=== PATIENT | female | born 1965 | race Hispanic/Latino ===

== ENCOUNTER → 2021-06-06 11:07 | Outpatient (CLI) | payer OTHER, SELFPAY ==
[2021-06-06 12:20] LABS: Add Manual Diff / Slide Review NO; Basophils Absolute Auto 0 /uL (0-100); Basophils Percent Auto 0.5 % (0-2); Eosinophils Absolute Auto 200 /uL (0-450); Eosinophils Percent Auto 3.9 % (2-4); Hematocrit 42.1 % (36-46); Hemoglobin 13.9 g/dL (12.0-16.0); Lymphocytes Absolute Auto 2400 /uL (1100-4500); Lymphocytes Percent Auto 44.9 % (25-40); Mean Corpuscular Hemoglobin 30.4 PG (26-34); Monocytes Absolute Auto 600 /uL (0-900); Monocytes Percent Auto 11.4 % (3-14); Neutrophils Absolute Auto 2100 /uL (1500-7000); Neutrophils Percent Auto 39.3 % (50-75); Platelet Count 250 X10^3/uL (150-400); Red Blood Cell Count 4.58 X10^6/uL (4.0-5.2); Red Cell Distribution Width 13.5 % (11.6-14.8); White Blood Cell Count 5.3 X10^3/uL (4.5-11.0)
[2021-06-06 12:30] LABS: Hemoglobin A1C% w Est Avg Glu 5.3 % (4.0-6.0)
[2021-06-06 12:35] LABS: BUN Creatinine Ratio 15.2 (6-22); Blood Urea Nitrogen 20 mg/dL (7-17); Carbon Dioxide 30 mmol/L (22-32); Chloride 105 mmol/L (98-107); Estimated Glomerular Filt Rate 41.6 mL/min (>60); Glucose 105 mg/dL (70-100); HEMOLYSIS < 15 (0-50); Potassium 4.5 mmol/L (3.4-5.1); Sodium 141 mmol/L (137-145)
== END ==
PROVIDERS: Referring Provider Orthopaedic Surgery Orthopaedic Surgery of the Spine; Visit Provider Orthopaedic Surgery Orthopaedic Surgery of the Spine
DX: Z01.818 Encounter for other preprocedural examination (principal); Z01.812 Encounter for preprocedural laboratory examination; R73.9 Hyperglycemia, unspecified
CPT/HCPCS: 36415; 80048; 83036; 85025; 93005; 93010

== ENCOUNTER → 2021-06-29 08:22 | Outpatient (CLI) | payer OTHER, SELFPAY ==
--- NOTE | 2021-06-29 | DI.CT.S_ITS ---
PROCEDURE: CT LUMBAR SPINE WO CON INDICATIONS: robotic protocol pending L4-5 TECHNIQUE: Noncontrast 3 mm thick sections acquired from the T12 level to the sacrum. For intraoperative guidance, 0.8 mm axial images were reformatted. Sagittal and coronal reformats were constructed. For radiation dose reduction, the following was used: automated exposure control. COMPARISON: [facility], MR, MR LUMBAR SPINE WITHOUT CONTRAST, 03/17/2021, 11:09. [facility] [place], CR, SPINE LUMB 2 OR 3VW, 06/29/2013, 13:18. [facility] [place], CR, XR LUMBAR SPINE 2 OR 3 VIEWS, 04/11/2021, 9:01. FINDINGS: Image quality: Excellent. Bones: There is normal bony alignment. No acute vertebral body compression fractures. No suspicious lytic or blastic bony lesions. No pars defects. T12-L1: No significant abnormality is seen. L1-L2: There is mild loss of disc height. Bridging anterior osteophytes are seen, which are worst on the right side. Mild generalized disc bulge is seen. No significant neural foraminal or central canal narrowing can be seen. L2-L3: The disc height is well preserved. Mild to moderate disc bulge is seen at this level. There is mild left-sided and nqox-sm-kbgfglis right-sided neural foraminal narrowing seen. Mild central canal narrowing is seen. L3-L4: The disc height is well preserved. At least moderate disc bulge is seen at this level. There is moderate left-sided and jqtl-gq-[id number] right-sided neural foraminal narrowing seen. Moderate central canal narrowing is seen. L4-L5: The disc height is relatively well preserved. Moderate to prominent facet hypertrophy is seen. Moderate bilateral neural foraminal narrowing can be seen, right worse than left. At least moderate central canal narrowing is seen. L5-S1: Moderate loss of disc height is seen. Vacuum disc phenomenon is seen at this level. Endplate irregularity and sclerosis can be seen. At least moderate disc bulge is seen. At least moderate facet hypertrophy can be seen. There is moderate to severe bilateral neural narrowing seen. Moderate central canal narrowing is seen. Soft tissues: No retroperitoneal masses or hematomas. Visualized aorta is normal in caliber. Left nephrectomy change is seen. IMPRESSION: Lumbar spine degenerative changes are seen, which are worst inferiorly at L4-L5 and L5-S1. Incidental note is made of: Left nephrectomy change Dictated by: Damon Sosa M.D. on 06/29/2021 at 10:06 Approved by: Damon Sosa M.D. on 06/29/2021 at 10:11
== END ==
DX: M47.816 Spondylosis without myelopathy or radiculopathy, lumbar region (principal); M47.817 Spondylosis without myelopathy or radiculopathy, lumbosacral region; M48.061 Spinal stenosis, lumbar region without neurogenic claudication; Z90.5 Acquired absence of kidney
CPT/HCPCS: 72131

== ENCOUNTER 2021-07-03 07:12 | Observation (INO) | payer OTHER, SELFPAY ==
[2021-07-03] VITALS (15 sets, daily range): BP systolic 127–175; BP diastolic 75–90; PULSE 60–92; RESP 10–17; TEMP 36.2–37.4; O2SAT 83–100; BMI 37.0
[2021-07-03 07:55] LABS: COVID19 -Nasal RAPID Negative (Negative)
--- NOTE | 2021-07-03 09:22 | PM.PREOP ---
Pre-operative Note COVID-19 COVID-19 status: Negative Result date/Date tested (Pos, Neg/Pending): 07/02/21 Interval Note History & Physical reviewed/Exam performed by Physician: Yes Changes to H&P: No
[2021-07-03] MEDS: LACTATED RINGERS 1,000 ML 42 ML IV ×2 (09:23→12:57)
[2021-07-03] MEDS: CEFAZOLIN 2 GM/20 ML SYRINGE IV ×2 (10:06→17:07)
--- NOTE | 2021-07-03 10:48 | SUR.OPER ---
Prone on spine table, head in foam head support, padded chest and pelvic supports, gel pad at knees, lower legs supported by pillows; nipples, genitalia and toes free of pressure, arms secured on foam padded arm boards at <90 degrees abduction. Tape over blanket at thigh secured to table.
[2021-07-03] MEDS: BUPIVACAINE LIPOSOME 266 MG/20 ML VIAL INJ (11:21)
[2021-07-03] MEDS: BUPIVACAINE 0.25% (PF) 30 ML, EPINEPHrine 0.3 MG INJ (11:22)
--- NOTE | 2021-07-03 13:46 | DI.RAD.S_ITS ---
PROCEDURE: XR LUMBAR SPINE 2-3V INDICATIONS: L4-5 TLIF WITH FUSION TECHNIQUE: 2 intraoperative fluoroscopic views of the lumbar spine were acquired. COMPARISON: [facility], XR LUMBAR SPINE 2 OR 3 VIEWS, 04/11/2021, 9:01. FINDINGS: Intraoperative fluoroscopic images of lower lumbar spine shows posterior fusion at L4 through S1 levels with intervertebral spacer placement. IMPRESSION: Fluoro guidance was provided intraoperatively for posterior fusion at L4 through S1 levels. Dictated by: Eduar Stanford M.D. on 07/03/2021 at 14:40 Approved by: Eduar Stanford M.D. on 07/03/2021 at 14:40
--- NOTE | 2021-07-03 13:47 | PM.OP.1 ---
Operative Date/Time/Diagnoses Date of procedure: 07/03/21 Time of procedure: 10:10 Pre-op diagnosis: 1. L4-5, L5-S1 spinal stenosis with neurogenic claudication 2. L4-5, L5-S1 spondylosis with radiculopathy Post-op diagnosis: same Procedure & Clinicians Procedure: 1. L4-5, L5-S1 Postero-lateral and posterior interbody fusion 2. L4-5, L5-S1 interbody cage placement. 3. L4-5, L5-S1 decompressive laminectomy with bilateral facetecomies 4. L4-5, L5-S1 Posterior segmental instrumentation 5. Wever of bone marrow from iliac crest 6. Utilization of microsurgical technique and operating microscope 7. Robotic assisted navigation surgery Same procedure as scheduled: Yes Indications: Patient has been having chronic back pain and worsening lumbar radiculopathy. Patient failed multiple conservative management with worsening pain weakness and numbness in her lower extremity. Patient has been having difficulty performing activity of daily living. After discussing risks benefits of treatment options, patient elected proceed with surgery. Surgeon: Cesar Demarco Sales And Marketing Professional: Anu Umana Click Yes if Unassisted: No Anesthesia Type: General Operative Notes Closure Type: primary Specimen(s): none sent Prosthetic devices, grafts, tissues, transplants, or devices: Globus CREO MIS screws, Rise cages Applied: catheter Estimated Blood Loss (mL): 150 Blood products transfused: none Procedure in detail: Patient was seen in the preoperative area. Risks and benefits of the surgery was discussed with the patient. Informed consent was obtained from the patient and placed in the chart. Surgical site was marked. Patient was taken to the operative room. General anesthesia was administered. Prophylactic antibiotic was given to the patient less than 30 min before the incision was made. Patient was placed into a prone position on the Gregor table. Patient's back was then prepped and draped in the sterile fashion. Time-out was performed at this time. After patient was prepped and draped, patient's PSIS was palpated and marked bilaterally. Small 1 cm incision was made over the PSIS for placement of the reference probes. Two trocar was placed into the PSIS 1 on each side. The reference probe was attached to the trocar of the reference apparatus. At this time the C-arm imaging was used to confirm AP and lateral of L4-L5, L5-S1 vertebrae and merged the C-arm imaging using the Trendy Mondays robotic navigation system with the CT of the lumbar spine. After successful merging was completed and confirmed, skin marker was used to sudheer out the skin incision using the Trendy Mondays robotic arm. Bilateral incision was made at this time. Pre templated trajectory was used and guided using the Trendy Mondays robotic navigation system for bilateral L4, L5, S1 pedicle screw placement. This was done by using the robotic arm to guide the high-speed bur to make a cortical entry point. Next a drill was placed also using the robotic arm and guided using the navigation system drilling partially through bilateral L4, L5 and S1 pedicles. Next L4, L5, S1 pedicle screws it was pre templated and measured was placed onto the power transit bus driver and inserted into the pedicles bilaterally. After all 6 screws were placed C-arm imaging was taken of both AP and lateral to confirm the placement. Excellent placement of the screws were confirmed and a matched precisely with the pre planned screw placement using the navigation system. MARs retractor was inserted using Gorb guidence. Globus MARS retractors was placed inside the incision and docked onto the L4 and L5 lamina. Using microsurgical technique and operating microscope, a L4, L5 laminectomy and L4-5, L5-S1 facetectomy was performed using a Kerrison rongeur. Patient was found have severe lateral recess and neural foramen stenosis which was fully decompressed after the laminectomy facetectomy. More than 75% of the facets were removed during the process of decompression rendering L4-5, L5-S1 level grossly unstable and required a fusion procedure at the same time. The disc space at L4-5, L5-S1 was identified, and a total diskectomy was performed at L4-5, L5-S1 level. The endplates were decorticated using a rasp and shaver. The total diskectomy and decortication was performed at L4-5, L5-S1 level in order to to accomplish a L4-5, L5-S1 fusion. The local bone from the laminectomy and facetectomy was saved for local bone grafting. After the total diskectomy and decortication was completed, Trifecta bone graft material was combined with local bone that was harvested earlier. At this time, a separate skin is incision was made over the iliac crest. A Jamshidi needle was inserted into the iliac crest through a separate skin incision. 5 cc of bone marrow aspiration was obtained through the separate skin incision using a Jamshidi needle from the iliac crest. The bone marrow aspiration was combined with local bone and the Trifecta bone grafting material. The bone grafting material was placed into the L4-5, L5-S1 interbody space along with a expandable cage. The cage was expanded to its maximum height using the torque limiting screwdriver. The disc preparation as well as the cage insertion were also performed under navigation guidance. After the cage was placed, AP and lateral C-arm imaging was taken to confirm placement of the cage and excellent position was confirmed. Globus MARS retractor was inserted and docked onto the L4-5, L5-S1 posterolateral gutter on the right side. Using the power drill, posterior-lateral decortication was performed at L4-5, L5-S1 level until bleeding cortical bone was identified. The remaining bone grafting material was placed into the L4-5, L5-S1 posterior lateral gutter he order to accomplish posterolateral fusion at the L4-5, L5-S1 level. At this time the tulips were attached to the L4, L5, S1 pedicle screw shanks. After measuring the length of the rods, they were inserted into the tulips of the pedicle screws and locked in place using locking caps and torque limiting screwdriver bilaterally. Total 6 caps and 2 titanium rods was used in order to complete the posterior instrumentation construct. After all the hardware was placed, and confirmed with AP and lateral C-arm imaging, the wound was then irrigated with sterile normal saline and packed with Ray-Abdiel gauze for 3 min to accomplish hemostasis. After the gauze was removed the deep fascia was closed with #1 Vicryl suture. The subcutaneous layer was closed with 2-0 Vicryl. The skin was closed with skin magnus. Patient tolerated the procedure well. There were no complications. Neuro monitoring system was used to monitor patient's neurologic status throughout entire procedure. There was no disturbance of the neural monitoring signals throughout the case. Complications: none Post-operative Condition: stable Disposition: PACU Plan for aftercare: Admit to inpatient hospital
--- NOTE | 2021-07-03 14:12 | SUR.PHASEI ---
1403 hrs; Pt arrives PACU breathing unassisted. Report from Dr Arora and CHILDREN'S ENTERTAINER. Pt placed on O2 NC 4 L for sats below 90.
[2021-07-03] MEDS: hydrOXYzine 50 MG/ML INJ 25 MG IM (14:37)
[2021-07-03] MEDS: OXYCODONE IR 5 MG TABLET PO (14:43)
[2021-07-03] MEDS: SODIUM CHLORIDE 0.9% 1,000 ML 100 ML IV (16:10)
[2021-07-03] MEDS: HYDROMORPHONE 0.5 MG INJ IV (16:42)
[2021-07-03] MEDS: OXYCODONE IR 5 MG TABLET 10 MG PO (19:41)
[2021-07-03] MEDS: DOCUSATE 100 MG CAPSULE PO (20:24)
[2021-07-03] MEDS: hydrOXYzine pamoate 25 MG CAPSULE PO (20:25)
[2021-07-03] MEDS: SENNOSIDES 8.6 MG TABLET 17.2 MG PO (20:25)
[2021-07-04] MEDS: OXYCODONE IR 5 MG TABLET 10 MG PO ×4 (00:03→20:18)
[2021-07-04] MEDS: SODIUM CHLORIDE 0.9% 1,000 ML 100 ML IV (01:38)
[2021-07-04] MEDS: CEFAZOLIN 2 GM/20 ML SYRINGE IV (01:38)
[2021-07-04] MEDS: LEVOTHYROXINE 50 MCG TABLET PO (05:30)
[2021-07-04 05:33] LABS: Hematocrit 37.9 % (36-46); Hemoglobin 12.7 g/dL (12.0-16.0)
[2021-07-04] MEDS: HYDROMORPHONE 0.5 MG INJ IV (05:40)
[2021-07-04 07:30] VITALS: BP 105/55; PULSE 81; RESP 22; TEMP 37.3; O2SAT 100
--- NOTE | 2021-07-04 07:55 | PM.PNPO.1 ---
Subjective Subjective Date Patient Seen: 07/04/21 Time Patient Seen: 07:55 Interval history: Pain mild to moderate. Denies fever or chills. No nausea or vomiting. Exam Vital Signs (past 8 hours): - 07/04/21 07:30 Temperature 99.2 F Pulse Rate 81 Respiratory Rate 22 Blood Pressure 105/55 L Pulse Oximetry 100 Oxygen Delivery Method Room Air Oxygen Flow Rate 2 Narrative Exam Narrative: 55-year-old female resting comfortably in bed in no apparent distress. BMI 37. Dressing is saturated on the right. Motor functions intact bilateral lower extremities. Sensation grossly intact to light touch bilateral lower extremities. Both legs are warm and dry. Const General: cooperative Resp Effort & Inspection: normal respiratory effort and able to speak in complete sentences Objective Labs Result Diagrams: 07/04/21 04:57 Labs: Laboratory Results - last 24 hr 07/03/21 07/04/21 07:26 04:57 Hgb 12.7 Hct 37.9 [facility]-CoV-2 (PCR) [facility] Medical History Fibromyalgia Hypothyroid [facility] on CPAP Surgical History History of arthroscopy of left shoulder (05/31/21) History of bilateral tubal ligation History of left nephrectomy (2007) History of lumbar spinal fusion (11/15/16) S/P excision of lipoma Social History household members: spouse Smoking Status: Never smoker Assessment & Plan Post-op Postoperative Procedures: Procedures Operation Date: 07/03/21 09:15 Actual Procedure Side Surgeon p L4-5, L5-S1 TLIF posterior instrumentation Not Applicable Cesar Demarco MD Postoperative day: 1 Postoperative status: doing well Postoperative status narrative: Stable status post surgery Postoperative plan narrative: Mobilize with physical therapy, limit bending, lifting, twisting Multimodal pain management Disposition home in 1-2 days
[2021-07-04] MEDS: DOCUSATE 100 MG CAPSULE PO ×2 (09:26→20:18)
--- NOTE | 2021-07-04 10:23 | CM.DANOTE ---
DCP: Case received, EMR reviewed and met with patient. Introduced self and role. Was able to obtain information regarding patient's baseline activity status prior to her surgery. DCP assessment completed with information currently available. Patient is a 55 year old female who admitted yesterday morning to the care of the orthopedic team. PCP: Dr. Hudson. P[facility]: [facility] Patient came to the hospital via private vehicle for a surgical procedure. Patient had L4-5, L5-S1 postero-lateral and posterior interbody fusion. Patient has history of low back pain and tingling and numbness in her LE. Patient also has history of Fibromyalgia. Met with patient in her room. She was sitting up in bed, alert and oriented. Confirmed with her that she resides in Saturday with her spouse, Jd. At her baseline, she indicated that she uses a cane at home. 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 Asked her if her would be able to assist her at home, and she indicated, he could. She has not yet worked with P.T. P: MARCOP to continue to follow for any needs. The plan is home when stable, but will need to see how she does with P.T. Annie Santoro RN/Stereotype Caster Discharge Planning/Care Management CM Discharge Assessment Start: 07/04/21 10:13 Freq: Status: Active Protocol: Document 07/04/21 10:13 (Rec: 07/04/21 10:15 [id number]) Discharge Planning Assessment Assigned Personal Development Mentor Annie Santoro RN/Stereotype Caster Advance Directives? No History Provided By Patient,Family Member,Medical Record Prior Living Arrangements House Household Members spouse Type of transporation used prior to Drives own vehicle admit Independent with ADL's Yes Is patient alert and oriented? Yes DME Already Rented / Owned Cane Discharge Plan Home Transportation Arrangement Spouse Referrals Initiated None needed Additional Comment Patient has not yet worked with P.T. [place] Updated in Patient Room with Yes name and ext. # of Personal Development Mentor Review Status In Process Next Review Type Continued Stay Review
--- NOTE | 2021-07-04 10:42 | PT.IIE ---
Current Diagnoses Spondylolisthesis, lumbar region (07/03/21) Spinal stenosis, lumbar region without neurogenic claudication (07/03/21) Surgery Performed Operation Date: 07/03/21 09:15 Actual Procedures p L4-5, L5-S1 TLIF posterior instrumentation(Not Applicable) - Cesar Demarco MD Medical History (Last Reviewed 07/04/21 @ 07:56 by Miki Wan PA-C) Fibromyalgia Hypothyroid CHICO on CPAP Physical Therapy Inpatient Evaluation/Re-Eval M1 PT/OT-IP Prior Functional Status Start: 07/04/21 08:34 Freq: NEEDED Status: Active Protocol: Document 07/04/21 10:42 AW (Rec: 07/04/21 11:37 AW [id number]) Medical Review Prior Functional Status Medical History Reviewed Yes Communication WNL Mobility and Gait Independent without assistive device. Pt and her regularly walk 4-5 laps around the high school track and did so as recently as last week. Activities of Daily Living and IADL's Pt had left shoulder surgery in May and is still on short term disability. She is needing some assist with getting undressed but is otherwise independent with ADL 's and has no restrictions from ortho. Social History Household Members spouse Living Arrangements House Number of Floors (Floors) One Floor Number of Stairs To Enter/Railing? Pt lives in second floor apartment which she accessed via 12 steps with narrow bilateral rails. 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 She lives with her in [place]. 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 Spouse, Jd, has taken time off work until next Saturday to assist at home. M2 PT-IP Current Condition Start: 07/04/21 08:34 Freq: NEEDED Status: Active Protocol: Document 07/04/21 10:42 AW (Rec: 07/04/21 11:37 AW [id number]) Physical Therapy Current Condition Current Condition Evaluation Date 07/04/21 Treatment Diagnosis L4-5 L5-S1 TLIF; impaired mobility and gait Onset Date 07/03/21 M3 PT-IP Subjective Start: 07/04/21 08:34 Freq: NEEDED Status: Active Protocol: Document 07/04/21 10:42 AW (Rec: 07/04/21 11:37 AW [id number]) Subjective Physical Therapy Visit Type Type Initial Evaluation Visit Start Time 09:51 Visit Stop Time 10:42 Total Visit Minutes 39 Notes Co-eval with OT. Split visits [id number] and [id number]. Pt's spouse was present and attentive throughout. Number of DRILLER AND REAMER Visits 0 Physical Therapy Visit Comments Patient Comments Pt is willing to participate with therapies. Patient Goals Return home with spouse support Therapy Pain Assessment Pain When Pain Assessed During Mobility Pain Present Pain Present Pain Reported Location Lower Back Intensity 5 Scale Used Numeric (0 - 10) Pain Management Techniques Re-positioning,Timing of Activity with Medications M4 PT-IP Mobility and Gait Start: 07/04/21 08:34 Freq: NEEDED Status: Active Protocol: Document 07/04/21 10:42 AW (Rec: 07/04/21 11:37 AW [id number]) PT-Bed Mobility Assessment Rolling Type of Rolling Log Rolling,Roll to Right Level of Assist Moderate Assistance,1 Person Assistance Supine to Sit Supine to Sit Moderate Assistance,1 Person Assistance,Bedrails Scooting Scooting to Edge of Bed Moderate Assistance PT-Transfer Assessment Sit to and From Stand Sit to and from Stand Minimal Assistance,1 Person Assistance,Use of Upper Extremities Equipment Transfer Assistive Device Gait Belt,Front Wheeled Walker Orthotic/Prosthetic Devices or Brace: No Transfers Transfer Destination Chair Transfer Technique pt amb with FWW Transfer Ability Level of Assist Contact Guard Assistance, Minimal Assistance Comments Mobility Comments Pt was lying in bed as PT and OT arrived. BP was 118/59 HR 86. PT educated pt on post-op precautions and log roll technique. Pt required verbal and tactile cues and mod assist for log roll and SL to sit. Pt c/o slight lightheadedness. Sitting BP 119/62 HR 88. She had difficulty maneuvering toward EOB. She is of short stature and needed mod assist to scoot forward. She complained of increased pressure in her low back in sitting. Once in position with feet as close to the ground as possible, pt stood to FWW min A x 1. She noted improvement in pressure symptoms in standing and agreed to ambulate around the room with FWW CGA. She asked to walk in the halls, stating her lightheadedness had improved. She walked a short distance out of the room and back to the sink. OT assisted pt with hygiene and pt tolerated standing >5 minutes. Pt walked to the chair with FWW CGA and transferred CGA. She was uncomfortable and trialed multiple positions. BP sitting was 99/58 HR 78 and did improve to 118/59 HR 84 within 2 minutes. Pt was left with multiple pillows behind her back and with legs elevated. Call light and tray table were in reach. Her spouse remained in the room. Gait Assessment Gait Gait Assistance Required: Contact Guard Assist Distance (Feet) 60 Able to Maintain Weight Bearing Status Yes During Gait Assistive Devices Assistive Device Gait Belt,Front Wheeled Walker Orthotic/Prosthetic Devices or Brace: No Gait Deviations General Gait Pattern Antalgic,Decreased Stride Length,Decreased Feet Clearance Factors Limiting Gait Function Factors Limiting Gait Function Decreased Activity Tolerance, Decreased Strength,Pain Comments Gait Comments Pt ambulated safely with FWW, requiring assist for line management. She reported improvement in all symptoms while walking. Stair Climbing Assessment Comments Stair Climbing Comments Not assessed. PT-Balance Assessment Sitting Balance and Reactions Static Sitting Balance Ability Good Dynamic Sitting Balance Ability Fair Standing Balance and Reactions Static Standing Balance Ability Good Dynamic Standing Balance Ability Good Device Used FWW M5 PT-IP Objective Assessments Start: 07/04/21 08:34 Freq: NEEDED Status: Active Protocol: Document 07/04/21 10:42 AW (Rec: 07/04/21 11:44 AW [id number]) Orientation Orientation/Cognition Level of Alertness Alert Orientation Name,Day of Week,Place, Situation Language Function Ability No Deficits Noted Safety Awareness Understands Safety Issues Memory Description No Deficits Noted Gross Range of Motion Lower Extremity ROM Assessment Within Functional Limits Strength Lower Extremity Strength Assessment Within Functional Limits Sensation Assessment Sensation Gross Sensation WNL M6 PT-IP Treatment Start: 07/04/21 08:34 Freq: NEEDED Status: Active Protocol: Document 07/04/21 10:42 AW (Rec: 07/04/21 11:44 AW [id number]) Physical Therapy Treatment Education Education Provided Precautions,Weight Bearing Status,Post-Op Packet,Safety Other Treatments Other Treatment Performed Educated pt and her spouse on PT plan of care, post-op precautions, and safe use of FWW. M7 PT-IP Assessment and Plan Start: 07/04/21 08:34 Freq: NEEDED Status: Active Protocol: Document 07/04/21 10:42 AW (Rec: 07/04/21 11:44 AW [id number]) PT Summary Assessment and Plan Potential Rehabilitation Potential Good Status of Condition at Evaluation Evolving Summary Impairments Pain,ROM,Strength,Balance,Bed Mobility,Transfers,Gait, Activity Tolerance Assessment Summary Yuridia is a 55 yo woman seen for PT evaluation on POD1 following L4-5 L5-S1 TLIF. 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 She had left shoulder surgery in May but has no current precautions or weightbearing restrictions. She lives with her spouse, Jd, who will be available to assist pt at home until Saturday when he returns to work . On assessment, pt required min-mod assist for bed mobility and sit to stand, CGA for mobility using FWW. PT anticipates pt will meet the goals of this plan of care and be safe to discharge home with assist once medically stable. She may need a FWW ( youth-size) for home use if unsafe with SPC. Goals Bed Mobility Goal Standby Assistance Transfer Goal Standby Assistance,Front Wheeled Walker Gait Goal Standby Assistance,Front Wheel Walker Gait Distance 250 Other Goals - up/down 12 steps with B rails SBA LTG: improve transfers and gait to SBA with SPC Days to Meet Goals 2 Frequency of Treatment Frequency Of Treatment Twice a Day Treatment Plan Physical Therapy Treatment Plan Bed Mobility Training,Transfer Training,Gait Training, Therapeutic Exercise,Balance Retraining,Post Op Education, Discharge Planning,Hot or Cold Pack Other Recommendations and Next Treatment review precautions, emphasize Focus hip hinge; mobility as tolerated; stairs when able; involve spouse in bed mobility training and any other caregiver training as appropriate Precautions Lumbar Precautions Log Roll,No Twisting,Limit Bending,Lifting Restriction of 10 lbs,Gait Belt above Incisional Area Recommendations To Nursing Amount of Assist Needed 1 Person Assist Discharge Recommendations PT Discharge Recommendations Home with Assistance Equipment Needed for Home Before youth-sized FWW if unsafe with Discharge SPC Transportation Needs at Discharge Private Vehicle
--- NOTE | 2021-07-04 10:50 | OT.IP.EVAL ---
Current Diagnoses Spondylolisthesis, lumbar region (07/03/21) Spinal stenosis, lumbar region without neurogenic claudication (07/03/21) Surgery Performed Operation Date: 07/03/21 09:15 Actual Procedures p L4-5, L5-S1 TLIF posterior instrumentation(Not Applicable) - Cesar Demarco MD Past Medical History (Last Reviewed 07/04/21 @ 07:56 by Miki Wan PA-C) Fibromyalgia History of arthroscopy of left shoulder (05/31/21) History of bilateral tubal ligation History of left nephrectomy (2007) History of lumbar spinal fusion (11/15/16) Hypothyroid CHICO on CPAP S/P excision of lipoma Surgical History (Last Reviewed 07/04/21 @ 07:56 by Miki Wan PA-C) History of arthroscopy of left shoulder (05/31/21) History of bilateral tubal ligation History of left nephrectomy (2007) History of lumbar spinal fusion (11/15/16) S/P excision of lipoma Occupational Therapy Inpatient Evaluation/Re-Eval M1 PT/OT-IP Prior Functional Status Start: 07/04/21 08:34 Freq: NEEDED Status: Active Protocol: Document 07/04/21 11:31 [facility] (Rec: 07/04/21 11:48 [facility] [id number]) Medical Review Prior Functional Status Communication Independent. Mobility and Gait Completely independent without a device. 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 Social History Household Members spouse Living Arrangements House Number of Stairs To Enter/Railing? Pt lives in second floor apartment with 12 steps and bilateral rails to ascend. Home Environment Standard Height Toilet,Tub/ Shower Home Equipment Straight Cane Additional Social History Comment Pts to be off of work until Saturday to assist with her needs. M2 OT-IP Current Condition Start: 07/04/21 11:30 Freq: Status: Active Protocol: Document 07/04/21 11:31 [facility] (Rec: 07/04/21 11:48 [facility] [id number]) Occupational Therapy Current Condition Current Condition Evaluation Date 07/04/21 Treatment Diagnosis S/p L4-5, L5-S1 TLIF Diagnosis Onset Date 07/03/21 Post Operative Precautions Lumbar Precautions Log Roll,No Twisting,Limit Bending,Lifting Restriction of 10 lbs,Gait Belt above Incisional Area M3 OT- IP Subjective and Pain Start: 07/04/21 11:30 Freq: Status: Active Protocol: Document 07/04/21 11:31 [facility] (Rec: 07/04/21 11:48 [facility] [id number]) OT- Subjective Occupational Therapy Visit Type Type Initial Evaluation Visit Start Time 10:02 Visit Stop Time 10:50 Total Visit Minutes 48 Occupational Therapy Visit Comments Patient Comments Pt agreed to get up. Patient/Caregiver Goals To go home. OT Pain Assessment Pain When Pain Assessed At Rest Pain Present Pain Present Pain Reported Location Lower Back Intensity 5 Scale Used Numeric (0 - 10) Description Pressure M4 OT- IP ADL's Start: 07/04/21 11:30 Freq: Status: Active Protocol: Document 07/04/21 11:31 [facility] (Rec: 07/04/21 11:48 [facility] [id number]) OT ADL-Grooming General Evaluation Grooming Ability Standby Assistance OT ADL-Oral Care General Eval Oral Care Ability Independent Comments Oral Care Comments VC to best spit into a cup/ basin to best follow her back precautions. OT ADL-Dressing General Eval Lower Body Dressing Ability Maximum Assistance Comments OT Dressing Comments Pt states will not wear socks and just slip on shoes. Began to initiate education of LB dressing equipment needs. OT ADL-Toileting General Evaluation Toileting Ability Total Assistance Comments OT Toileting Comments Catheter in place. OT ADL-Bathing Bathing Type Bathing Type Sponge Bath General Evaluation Bathing Ability Moderate Assistance Areas Needing Assistance Wash/Dry Back Comments OT Bathing Comments Pt able to sponge off her chest and arms. Pt would benefit from a shower chair and hand held shower spray. M5 OT- IP IADL's Start: 07/04/21 11:30 Freq: Status: Active Protocol: Document 07/04/21 11:31 [facility] (Rec: 07/04/21 11:48 [facility] [id number]) OT-Instrumental Activities of Daily Living Home Safety Awareness Awareness of Need for Assistance at Home Good Awareness Home Safety Comments Pt's to be home to assist pt until Saturday for all needs until having to go back to work. Medication Management Medication Management No Deficits Identified Money Management Money Management No Deficits Identified Meal Preparation Meal Preparation Comments Pt's to assist. Router Operator Radial Router Operator Radial Comments Pt's to assist. M6 OT- IP Functional Cognition Start: 07/04/21 11:30 Freq: Status: Active Protocol: Document 07/04/21 11:31 [facility] (Rec: 07/04/21 11:48 [facility] [id number]) Cognitive Factors Limiting Selfcare Function Cognitive Ability Level of Alertness Alert Patient Orientation Name,Age,Birthday,Month,Date, Year,Day of Week,Place, Situation Attention Span Ability Capable of Focused Attention, Capable of Sustained Attention Ability to Follow Commands Able to Follow Multi-Step Commands Cognitive Comments Cognitive Assessment Comments Pt appears intact with no issues to continue to follow for cognitive needs. OT- Vision and Hearing OT- Hearing Assessment OT- Hearing Assessment WFL OT- Vision Assessment Visual Acuity Glasses All The Time M7 OT- IP Mobility and Balance Start: 07/04/21 11:30 Freq: Status: Active Protocol: Document 07/04/21 11:31 [facility] (Rec: 07/04/21 11:48 [facility] [id number]) OT- Bed Mobility Assessment Rolling Type of Rolling Roll to Right Supine to Sit Supine to Sit Assist Moderate Assistance Scooting Scooting to Edge of Bed Maximum Assistance OT-Transfer Assessment Sit to and From Stand Sit to and from Stand Minimal Assistance Transfers Transfer Ability Contact Guard Assistance Technique Transfer Destination Bed,Chair Transfer Technique Stand Step Pivot Devices Transfer Assistive Devices Gait Belt,Front Wheeled Walker Comments Mobility Comments MODA from supine to sit and TIFFANIE to stand form higher bed and CGA when up on her feet with FWW. BP 119/52 sitting and after up on her feet dropped to 99/58 and then back up to 118/59. Pt on RA and O2 at 96% OT- Gait Assessment Comments Gait Ability Comments CGA with FWW. OT- Balance Assessment Sitting Balance and Reactions Static Sitting Balance Ability Good Dynamic Sitting Balance Ability Good Standing Balance and Reactions Static Standing Balance Ability Fair M8 OT- IP Objective Assessments Start: 07/04/21 11:30 Freq: Status: Active Protocol: Document 07/04/21 11:31 [facility] (Rec: 07/04/21 11:48 [facility] [id number]) OT-Muscle Tone Assessment Muscle Tone WNL Yes M9 OT- IP Assessment and Plan Start: 07/04/21 11:30 Freq: Status: Active Protocol: Document 07/04/21 11:31 [facility] (Rec: 07/04/21 11:48 [facility] [id number]) OT Summary Assessment and Plan Potential Rehabilitation Potential Good Analytic Complexity at Evaluation Low Summary OT Impairments Pain,Balance,Functional Mobility,Dressing,Toileting, Bathing,Toilet Transfers, Shower Transfers,Activity Tolerance Progress Towards Goals Progressing Toward Goals,Slow Progress due to Pain,Slow Progress due to Medical Issues Assessment Summary Pt low complexity and main barriers are steps and now needing some assistance for ADL and mobility needs. Pt has a supportive to assist with her needs at home and not having to go back to work until Saturday. Pt would benefit form getting a shower chair, ffw, and hand held shower spray. Pt looking to go home with her when medically stable. Goals Grooming Goal Independent Dressing Goal Minimal Assistance Toileting Goal Independent Bathing Goal Standby Assistance Toilet Transfer Goal Independent Shower Transfer Goal Independent Patient/Caregiver Education Goal Caregiver Independent Assisting Patient Days to Meet Goals 3 Frequency of Treatment Frequency Of Treatment Once a Day Treatment Plan OT Treatment Plan ADL Training,Functional Mobility,Patient/Family Education,Discharge Planning Other Treatment Recommendations and Next shower Treatment Focus Discharge Recommendations OT Discharge Recommendations Home with 14/01 Assist Available Home Equipment Needs FWW, shower chair, hand held shower spray Transportation Needs at Discharge Private Vehicle
[2021-07-04 11:55] VITALS: BP 127/76; PULSE 82; RESP 21; TEMP 37; O2SAT 98
--- NOTE | 2021-07-04 14:00 | PT-IP ANOTE ---
Pt refused therapy at 1400 due to fatigue from recent ambulation in hallways w/ . RN confirmed.
[2021-07-04 16:25] VITALS: BP 117/71; PULSE 85; RESP 17; TEMP 37.8; O2SAT 99
[2021-07-04 19:53] VITALS: BP 117/44; PULSE 89; RESP 17; TEMP 38.1; O2SAT 99
[2021-07-04 20:18] VITALS: TEMP 38.1
[2021-07-04] MEDS: SENNOSIDES 8.6 MG TABLET 17.2 MG PO (20:18)
[2021-07-04] MEDS: SODIUM CHLORIDE 0.9% FLUSH 10 ML IV (20:20)
[2021-07-04 23:53] VITALS: BP 117/44; PULSE 91; RESP 17; TEMP 37.9; O2SAT 95
[2021-07-05] MEDS: OXYCODONE IR 5 MG TABLET 10 MG PO ×5 (05:12→23:24)
[2021-07-05 05:20] VITALS: BP 108/63; PULSE 92; RESP 16; TEMP 37.1; O2SAT 93
[2021-07-05] MEDS: LEVOTHYROXINE 50 MCG TABLET PO (05:27)
[2021-07-05 07:30] VITALS: BP 121/59; PULSE 87; RESP 16; TEMP 36; O2SAT 94
[2021-07-05] MEDS: DOCUSATE 100 MG CAPSULE PO ×2 (09:21→20:13)
[2021-07-05] MEDS: SODIUM CHLORIDE 0.9% FLUSH 10 ML IV ×2 (10:35→20:25)
--- NOTE | 2021-07-05 10:40 | PT.IPTN ---
Current Diagnoses Obesity, unspecified (07/03/21) Spondylolisthesis, lumbar region (07/03/21) Spinal stenosis, lumbar region without neurogenic claudication (07/03/21) Arthrodesis status (07/03/21) Surgery Performed Operation Date: 07/03/21 09:15 Actual Procedures p L4-5, L5-S1 TLIF posterior instrumentation(Not Applicable) - eCsar Demarco MD Physical Therapy Treatment Note M2 PT-IP Current Condition Start: 07/04/21 08:34 Freq: NEEDED Status: Active Protocol: Document 07/05/21 10:15 SP (Rec: 07/05/21 12:39 SP [id number]) Physical Therapy Current Condition Current Condition Evaluation Date 07/04/21 Treatment Diagnosis L4-5 L5-S1 TLIF; impaired mobility and gait Onset Date 07/03/21 M3 PT-IP Subjective Start: 07/04/21 08:34 Freq: NEEDED Status: Active Protocol: Document 07/05/21 10:15 SP (Rec: 07/05/21 12:39 SP [id number]) Subjective Physical Therapy Visit Type Type Treatment Note Visit Start Time 10:15 Visit Stop Time 10:40 Total Visit Minutes 25 Number of FIELD ASSESSOR Visits 1 Physical Therapy Visit Comments Patient Comments Pt is willing to participate with FIELD ASSESSOR including stair assessment when approached her walking in hallway with LINEN SUPPLY LOAD BUILDER. Patient Goals Return home with spouse support. Therapy Pain Assessment Pain When Pain Assessed At Rest Pain Present Pain Present Pain Reported Location Lower Back Scale Used low level, not quantified Description With Movement Pain Management Techniques Re-positioning,Timing of Activity with Medications M4 PT-IP Mobility and Gait Start: 07/04/21 08:34 Freq: NEEDED Status: Active Protocol: Document 07/05/21 10:15 SP (Rec: 07/05/21 12:39 SP [id number]) PT-Transfer Assessment Sit to and From Stand Sit to and from Stand Minimal Assistance,Moderate Assistance,1 Person Assistance ,Use of Upper Extremities Equipment Transfer Assistive Device Gait Belt,Front Wheeled Walker Orthotic/Prosthetic Devices or Brace: No Transfers Transfer Destination Chair,Wheelchair Transfer Technique pt ambulated w/ FWW Transfer Ability Level of Assist Contact Guard Assistance,1 Person Assistance,Use of Upper Extremities Comments Mobility Comments Pt was walking in hallway w/ LINEN SUPPLY LOAD BUILDER using FWW, CGA via contact gown when arrived, LINEN SUPPLY LOAD BUILDER stated she walked about 200 + ft already. FIELD ASSESSOR took over with pt in hallway, donned gait belt up high, proceeded gait approx 50 ft w/c follow before needed to sit, Min A slow descent w/c and cues for reach back. Pt wheeled down to stairs. arrived, complete ascend/descend stair mgt step to 6 of 12 stairs B H E Min- Mod A x1 of and Mod cues for LE sequencing and body positioning for safety. Pt heavy WB BUE on FWW SPT back to w/c CG-Min A. Pt wheeled back to room. Sit> stand from w/c 5 ft gait to chair, cued full pivot back to chair Kaylin for slow descent. Pt required assist elevate LEs . FIELD ASSESSOR stated improved mobilty but unable to complete full 12 stairs, recommending CGT continue 2 pm with both in agreement for assess safe DC enter home. Gait Assessment Gait Gait Assistance Required: Contact Guard Assist Distance (Feet) 50 Able to Maintain Weight Bearing Status Yes During Gait Assistive Devices Assistive Device Gait Belt,Front Wheeled Walker Orthotic/Prosthetic Devices or Brace: No Gait Deviations General Gait Pattern Antalgic,Decreased Stride Length,Decreased Feet Clearance Factors Limiting Gait Function Factors Limiting Gait Function Decreased Activity Tolerance, Decreased Strength,Pain,Poor Safety Awareness Comments Gait Comments See mobility comments Stair Climbing Assessment Evaluation Level of Assist On Stairs Minimal Assistance,Moderate Assistance,1 Person Assistance Devices Stair Climbing Assistive Devices Left Railing,Right Railing Technique/Endurance Stair Climbing Direction Ascend and Descend Stair Climbing Technique Step to Step Number of Steps Climbed 3 Stair Climbing Set # Repetitions (reps) 2 Comments Stair Climbing Comments Completed 6 of 12 stairs has to complete at home, unable to complete full 12 due to decreased strength and activitiy tolerance, stop stand rest between each 3 stairs, 3 rests total. PT-Balance Assessment Sitting Balance and Reactions Static Sitting Balance Ability Good Dynamic Sitting Balance Ability Fair Standing Balance and Reactions Static Standing Balance Ability Good Dynamic Standing Balance Ability Good Device Used FWW M5 PT-IP Objective Assessments Start: 07/04/21 08:34 Freq: NEEDED Status: Active Protocol: Document 07/04/21 10:42 AW (Rec: 07/04/21 11:44 AW [id number]) Orientation Orientation/Cognition Level of Alertness Alert Orientation Name,Day of Week,Place, Situation Language Function Ability No Deficits Noted Safety Awareness Understands Safety Issues Memory Description No Deficits Noted Gross Range of Motion Lower Extremity ROM Assessment Within Functional Limits Strength Lower Extremity Strength Assessment Within Functional Limits Sensation Assessment Sensation Gross Sensation WNL M6 PT-IP Treatment Start: 07/04/21 08:34 Freq: NEEDED Status: Active Protocol: Document 07/05/21 10:15 SP (Rec: 07/05/21 12:39 SP [id number]) Physical Therapy Treatment Education Education Provided Precautions,Weight Bearing Status,Safety Other Treatments Other Treatment Performed Continued education in spinal precautions and safe repositioning of FWW fully back when backing up to sit, contact cues for reaching back slow descent Min A. M7 PT-IP Assessment and Plan Start: 07/04/21 08:34 Freq: NEEDED Status: Active Protocol: Document 07/05/21 10:15 SP (Rec: 07/05/21 12:39 SP [id number]) PT Summary Assessment and Plan Potential Rehabilitation Potential Good Status of Condition at Evaluation Evolving Summary Impairments Pain,ROM,Strength,Balance,Bed Mobility,Transfers,Gait, Activity Tolerance Progress Towards Goals Progressing Toward Goals,Slow Progress due to Pain,Slow Progress due to Activity Tolerance Assessment Summary Pt required CGA during gait using fWW, w/c follow due to decreased strength after already walking in hallway with LINEN SUPPLY LOAD BUILDER prior to seeing FIELD ASSESSOR. Min- Mod A sit>stand from w/c cues push from chair. Min- Mod A during stair mgt for trunk support ascend/ descend BHR. Recommending PM tx at 2 with . Will continue to assess progress. Goals Bed Mobility Goal Standby Assistance Transfer Goal Standby Assistance,Front Wheeled Walker Gait Goal Standby Assistance,Front Wheel Walker Gait Distance 250 Other Goals - up/down 12 steps with B rails SBA LTG: improve transfers and gait to SBA with SPC Days to Meet Goals 2 Frequency of Treatment Frequency Of Treatment Twice a Day Treatment Plan Physical Therapy Treatment Plan Bed Mobility Training,Transfer Training,Gait Training, Therapeutic Exercise,Balance Retraining,Post Op Education, Discharge Planning,Hot or Cold Pack Other Recommendations and Next Treatment Review precautions, emphasize Focus hip hinge; mobility as tolerated; 12 stairs w/ B HR for safet DC home. Continue caregiver training with spouse including stairs today at 2pm . *Dispense FWW for home standard vs youth prior to DC home. Precautions Lumbar Precautions Log Roll,No Twisting,Limit Bending,Lifting Restriction of 10 lbs,Gait Belt above Incisional Area Recommendations To Nursing Amount of Assist Needed 1 Person Assist Discharge Recommendations PT Discharge Recommendations Home with Assistance Equipment Needed for Home Before youth-sized FWW if unsafe with Discharge SPC Transportation Needs at Discharge Private Vehicle
--- NOTE | 2021-07-05 10:46 | PM.PNPO.1 ---
Subjective Subjective Date Patient Seen: 07/05/21 Time Patient Seen: 10:47 Interval history: Sitting up in chair. Complains of fatigue; she and say she just finished working with PT. They have 12 stairs leading into house and she was only able to complete 6 stairs w/ PT today as she had been ambulating quite a bit up and down the halls and was tired. Does not feel safe to go home today. Exam Vital Signs (past 8 hours): - 07/05/21 05:20 07/05/21 07:30 Temperature 98.7 F 96.8 F L Pulse Rate 92 H 87 Respiratory Rate 16 16 Blood Pressure 108/63 121/59 L Pulse Oximetry 93 94 Oxygen Delivery Method Room Air Oxygen Flow Rate 0 Narrative Exam Narrative: 5/5 strength in quadriceps, hamstrings, dorsiflexion, plantarflexion bilaterally. Sensation to light touch intact throughout BLE. Calves soft, compressible, nontender and without palpable cords or masses. Const General: cooperative and comfortable Orientation: alert, awake and oriented x3 Objective Labs Result Diagrams: 07/04/21 04:57 [facility] Medical History (Updated 07/05/21 @ 10:55 by Anu Umana PA-C) Fibromyalgia Hypothyroid Obesity (BMI 30-39.9) CHICO on CPAP Surgical History (Updated 07/05/21 @ 10:54 by Anu Umana PA-C) History of arthroscopy of left shoulder (05/31/21) History of bilateral tubal ligation History of left nephrectomy (2007) History of lumbar spinal fusion (11/15/16) S/P excision of lipoma Social History household members: spouse Smoking Status: Never smoker Assessment & Plan Post-op Assessment and plan (1) Status post lumbar spinal fusion: (2) Obesity (BMI 30-39.9): Postoperative Procedures: Procedures Operation Date: 07/03/21 09:15 Actual Procedure Side Surgeon p L4-5, L5-S1 TLIF posterior instrumentation Not Applicable Cesar Demarco MD Postoperative day: 2 Postoperative status narrative: Recovery following 2 level TLIF as expected. Postoperative plan narrative: Continue mobilization w/ PT. Likely d/c tomorrow if able to demonstrate ability to safely get into home.
--- NOTE | 2021-07-05 10:50 | OT.IP.TRT ---
Current Diagnoses Obesity, unspecified (07/03/21) Spondylolisthesis, lumbar region (07/03/21) Spinal stenosis, lumbar region without neurogenic claudication (07/03/21) Arthrodesis status (07/03/21) Surgery Performed Operation Date: 07/03/21 09:15 Actual Procedures p L4-5, L5-S1 TLIF posterior instrumentation(Not Applicable) - Cesar Demarco MD Occupational Therapy Treatment Note M2 OT-IP Current Condition Start: 07/04/21 11:30 Freq: Status: Active Protocol: Document 07/04/21 11:31 [facility] (Rec: 07/04/21 11:48 [facility] [id number]) Occupational Therapy Current Condition Current Condition Evaluation Date 07/04/21 Treatment Diagnosis S/p L4-5, L5-S1 TLIF Diagnosis Onset Date 07/03/21 Post Operative Precautions Lumbar Precautions Log Roll,No Twisting,Limit Bending,Lifting Restriction of 10 lbs,Gait Belt above Incisional Area M3 OT- IP Subjective and Pain Start: 07/04/21 11:30 Freq: Status: Active Protocol: Document 07/05/21 12:06 [facility] (Rec: 07/05/21 12:15 [facility] [id number]) OT- Subjective Occupational Therapy Visit Type Type Treatment Note Visit Start Time 10:40 Visit Stop Time 10:50 Total Visit Minutes 10 Occupational Therapy Visit Comments Patient Comments Pt just worked with PT and too tired to get up again. Patient/Caregiver Goals To go home. OT Pain Assessment Pain When Pain Assessed At Rest Pain Present Pain Present Denied Pain M4 OT- IP ADL's Start: 07/04/21 11:30 Freq: Status: Active Protocol: Document 07/05/21 12:06 [facility] (Rec: 07/05/21 12:15 [facility] [id number]) OT ADL-Dressing Comments OT Dressing Comments Pt's states to get a submarine diver for to use and that he or other family members will assist with any on her needs as needed. OT ADL-Bathing Comments OT Bathing Comments Pt states to shower tomorrow, pt's agreed to come for caregiver training tomorrow at 9AM. M5 OT- IP IADL's Start: 07/04/21 11:30 Freq: Status: Active Protocol: Document 07/04/21 11:31 [facility] (Rec: 07/04/21 11:48 [facility] [id number]) OT-Instrumental Activities of Daily Living Home Safety Awareness Awareness of Need for Assistance at Home Good Awareness Home Safety Comments Pt's to be home to assist pt until Saturday for all needs until having to go back to work. Medication Management Medication Management No Deficits Identified Money Management Money Management No Deficits Identified Meal Preparation Meal Preparation Comments Pt's to assist. Liner Installer Liner Installer Comments Pt's to assist. M6 OT- IP Functional Cognition Start: 07/04/21 11:30 Freq: Status: Active Protocol: Document 07/04/21 11:31 [facility] (Rec: 07/04/21 11:48 [facility] [id number]) Cognitive Factors Limiting Selfcare Function Cognitive Ability Level of Alertness Alert Patient Orientation Name,Age,Birthday,Month,Date, Year,Day of Week,Place, Situation Attention Span Ability Capable of Focused Attention, Capable of Sustained Attention Ability to Follow Commands Able to Follow Multi-Step Commands Cognitive Comments Cognitive Assessment Comments Pt appears intact with no issues to continue to follow for cognitive needs. OT- Vision and Hearing OT- Hearing Assessment OT- Hearing Assessment WFL OT- Vision Assessment Visual Acuity Glasses All The Time M8 OT- IP Objective Assessments Start: 07/04/21 11:30 Freq: Status: Active Protocol: Document 07/04/21 11:31 [facility] (Rec: 07/04/21 11:48 [facility] [id number]) OT-Muscle Tone Assessment Muscle Tone WNL Yes M9 OT- IP Assessment and Plan Start: 07/04/21 11:30 Freq: Status: Active Protocol: Document 07/05/21 12:06 [facility] (Rec: 07/05/21 12:15 [facility] [id number]) OT Summary Assessment and Plan Summary Progress Towards Goals Progressing Toward Goals Assessment Summary Pt's states to just get a FWW from the hospital therefore orders requested for the pt. Pt's states to get a shower chair and submarine diver from work for her to use at home. Pt has a supportive and family to assist her. Pt to go home when medically stable. Goals Grooming Goal Independent Dressing Goal Minimal Assistance Bathing Goal Standby Assistance Toilet Transfer Goal Independent Shower Transfer Goal Independent Patient/Caregiver Education Goal Caregiver Independent Assisting Patient Days to Meet Goals 2 Frequency of Treatment Frequency Of Treatment Once a Day Treatment Plan OT Treatment Plan ADL Training,Functional Mobility,Patient/Family Education,Discharge Planning Other Treatment Recommendations and Next shower/caregiver training Treatment Focus Discharge Recommendations OT Discharge Recommendations Home with 24/ Assist Available Home Equipment Needs FWW, shower chair, hand held shower spray Transportation Needs at Discharge Private Vehicle
[2021-07-05 12:09] VITALS: BP 125/67; PULSE 87; RESP 17; TEMP 37.1; O2SAT 96
--- NOTE | 2021-07-05 14:34 | PT.IPTN ---
Current Diagnoses Obesity, unspecified (07/03/21) Spondylolisthesis, lumbar region (07/03/21) Spinal stenosis, lumbar region without neurogenic claudication (07/03/21) Arthrodesis status (07/03/21) Surgery Performed Operation Date: 07/03/21 09:15 Actual Procedures p L4-5, L5-S1 TLIF posterior instrumentation(Not Applicable) - Cesar Demarco MD Physical Therapy Treatment Note M2 PT-IP Current Condition Start: 07/04/21 08:34 Freq: NEEDED Status: Active Protocol: Document 07/05/21 14:05 SP (Rec: 07/05/21 17:22 SP [id number]) Physical Therapy Current Condition Current Condition Evaluation Date 07/04/21 Treatment Diagnosis L4-5 L5-S1 TLIF; impaired mobility and gait Onset Date 07/03/21 M3 PT-IP Subjective Start: 07/04/21 08:34 Freq: NEEDED Status: Active Protocol: Document 07/05/21 14:05 SP (Rec: 07/05/21 17:22 SP [id number]) Subjective Physical Therapy Visit Type Type Treatment Note Visit Start Time 14:05 Visit Stop Time 14:34 Total Visit Minutes 29 Notes completed caregiver training, provided all assist required throughout tx. Number of RAIL TRACK LAYER Visits 2 Physical Therapy Visit Comments Patient Comments Pt is willing to participate with therapies. Patient Goals Return home with spouse support. Therapy Pain Assessment Pain When Pain Assessed At Rest Pain Present Pain Present Pain Reported Location Lower Back Scale Used low level, not quantified Description With Movement Pain Behaviors Facial Grimacing Pain Management Techniques Distraction,Modification of Treatment,Re-positioning, Timing of Activity with Medications M4 PT-IP Mobility and Gait Start: 07/04/21 08:34 Freq: NEEDED Status: Active Protocol: Document 07/05/21 14:05 SP (Rec: 07/05/21 17:22 SP [id number]) PT-Transfer Assessment Sit to and From Stand Sit to and from Stand Minimal Assistance,Moderate Assistance,1 Person Assistance ,Use of Upper Extremities Equipment Transfer Assistive Device Gait Belt,Front Wheeled Walker Orthotic/Prosthetic Devices or Brace: No Transfers Transfer Destination Chair,Wheelchair Transfer Technique pt ambulated w/ FWW Transfer Ability Level of Assist Contact Guard Assistance,1 Person Assistance,Use of Upper Extremities Comments Mobility Comments Pt seated up in chair when arrived, in room. donned gait belt on pt , provided support for sitting forward and scoot to EOchair . Pt improved mobility this tx, completed sit>stand Min- Mod A of , cued for quad facilitation for tall upright complete stand heavy BUE WB push from chair arms and transition to FWW. Pt ambulated to w/c in hallway 20 ft CGA small slow steps, mod- heavy WB on FWW. SPT slow descent to chair Min A. Pt wheeled to stairs. Ascend/ descend 9 stair of 12 has at home, unable complete 3 more due to decreased strength and endurance. Pt requested walk back to room w/c follow but not needed approx 270 ft CGA with occasional due for standing tall (standard height FWW at lowest level appropriate for her height when assessed), tends to sink/ slouch heavy WB BUE on FWW. Pt SPT returned to chair Min A for slow descent, able self scoot back in chair w/ BUE. elevated chair leg rests, provided warm blankets. Pt had call light and all needs in reach before left. in room. Will continue to assess progress. Believe pt will be able to complete full 12 stairs if DC tomorrow but trialing before leave might tire her when gets home. is able to provide assist needs, pt will need FWW dispensed prior to DC. Gait Assessment Gait Gait Assistance Required: Contact Guard Assist Distance (Feet) 270 Able to Maintain Weight Bearing Status Yes During Gait Assistive Devices Assistive Device Gait Belt,Front Wheeled Walker Orthotic/Prosthetic Devices or Brace: No Gait Deviations General Gait Pattern Antalgic,Decreased Stride Length,Decreased Feet Clearance Factors Limiting Gait Function Factors Limiting Gait Function Decreased Activity Tolerance, Decreased Strength,Limited Range of Motion,Pain,Poor Safety Awareness Comments Gait Comments see mobility comments Stair Climbing Assessment Evaluation Level of Assist On Stairs Minimal Assistance,Moderate Assistance,1 Person Assistance Devices Stair Climbing Assistive Devices Left Railing,Right Railing Technique/Endurance Stair Climbing Direction Ascend and Descend Stair Climbing Technique Step to Step Number of Steps Climbed 3 Stair Climbing Set # Repetitions (reps) 3 Comments Stair Climbing Comments completed 9/12 stairs has at home, cued quad facilitation 8 , 9 step to prevent risk buckling due to pt tiring. Min - Mod ascend, Kaylin descend by via gait belt. PT-Balance Assessment Sitting Balance and Reactions Static Sitting Balance Ability Good Dynamic Sitting Balance Ability Fair Standing Balance and Reactions Static Standing Balance Ability Good Dynamic Standing Balance Ability Good Device Used FWW M5 PT-IP Objective Assessments Start: 07/04/21 08:34 Freq: NEEDED Status: Active Protocol: Document 07/04/21 10:42 AW (Rec: 07/04/21 11:44 AW [id number]) Orientation Orientation/Cognition Level of Alertness Alert Orientation Name,Day of Week,Place, Situation Language Function Ability No Deficits Noted Safety Awareness Understands Safety Issues Memory Description No Deficits Noted Gross Range of Motion Lower Extremity ROM Assessment Within Functional Limits Strength Lower Extremity Strength Assessment Within Functional Limits Sensation Assessment Sensation Gross Sensation WNL M6 PT-IP Treatment Start: 07/04/21 08:34 Freq: NEEDED Status: Active Protocol: Document 07/05/21 14:05 SP (Rec: 07/05/21 17:22 SP [id number]) Physical Therapy Treatment Education Education Provided Precautions,Weight Bearing Status,Safety Other Treatments Other Treatment Performed Pt reports will sleep in recliner when gets home for now. M7 PT-IP Assessment and Plan Start: 07/04/21 08:34 Freq: NEEDED Status: Active Protocol: Document 07/05/21 14:05 SP (Rec: 07/05/21 17:22 SP [id number]) PT Summary Assessment and Plan Potential Rehabilitation Potential Good Status of Condition at Evaluation Evolving Summary Impairments Pain,ROM,Strength,Balance,Bed Mobility,Transfers,Gait, Activity Tolerance Progress Towards Goals Progressing Toward Goals,Slow Progress due to Pain,Slow Progress due to Activity Tolerance Assessment Summary Pt required Min- Mod A for transfers and stairs, CGA during gait w/ FWW. Pt will require FWW dispensed prior to DC standard lowest height vs youth FWW for home use. Goals Bed Mobility Goal Standby Assistance Transfer Goal Standby Assistance,Front Wheeled Walker Gait Goal Standby Assistance,Front Wheel Walker Gait Distance 250 Other Goals - up/down 12 steps with B rails SBA LTG: improve transfers and gait to SBA with SPC Days to Meet Goals 2 Frequency of Treatment Frequency Of Treatment Twice a Day Treatment Plan Physical Therapy Treatment Plan Bed Mobility Training,Transfer Training,Gait Training, Therapeutic Exercise,Balance Retraining,Post Op Education, Discharge Planning,Hot or Cold Pack Other Recommendations and Next Treatment Review precautions, emphasize Focus hip hinge sit<>stand; gait w/ FWW 12 stairs if wish to assess pre DC, caution of to tiring to get in home. * Dispense FWW for home standard vs youth prior to DC home. Precautions Lumbar Precautions Log Roll,No Twisting,Limit Bending,Lifting Restriction of 10 lbs,Gait Belt above Incisional Area Recommendations To Nursing Amount of Assist Needed 1 Person Assist Discharge Recommendations PT Discharge Recommendations Home with Assistance,Home with 24/7 Assist Available Equipment Needed for Home Before Youth vs standard FWW Discharge Transportation Needs at Discharge Private Vehicle
[2021-07-05 16:30] VITALS: BP 118/62; PULSE 86; RESP 16; TEMP 38; O2SAT 96
[2021-07-05 20:06] VITALS: BP 145/65; PULSE 85; RESP 17; TEMP 37.4; O2SAT 97
[2021-07-05] MEDS: hydrOXYzine pamoate 25 MG CAPSULE PO (20:13)
[2021-07-05] MEDS: SENNOSIDES 8.6 MG TABLET 17.2 MG PO (20:13)
[2021-07-05 23:34] VITALS: BP 123/60; PULSE 94; RESP 17; TEMP 37.3; O2SAT 99
[2021-07-06 04:41] VITALS: BP 113/55; PULSE 88; RESP 16; TEMP 37; O2SAT 100
[2021-07-06] MEDS: LEVOTHYROXINE 50 MCG TABLET PO (05:36)
[2021-07-06] MEDS: OXYCODONE IR 5 MG TABLET 10 MG PO ×2 (06:42→10:13)
[2021-07-06 08:00] VITALS: BP 107/54; PULSE 95; RESP 19; TEMP 37.1; O2SAT 95
[2021-07-06] MEDS: DOCUSATE 100 MG CAPSULE PO (08:07)
[2021-07-06] MEDS: SODIUM CHLORIDE 0.9% FLUSH 10 ML IV (08:08)
[2021-07-06] MEDS: MAGNESIUM HYDROXIDE 30 ML UDC PO (08:09)
--- NOTE | 2021-07-06 08:49 | PM.DS.1 ---
History of Present Illness History of Present Illness Date Patient Seen: 07/06/21 Time Patient Seen: 08:49 Chief complaint: TLIF *OPB* Narrative: Patient has been having chronic back pain and worsening lumbar radiculopathy. Patient failed multiple conservative management with worsening pain weakness and numbness in her lower extremity.? Patient has been having difficulty performing activity of daily living.? After discussing risks benefits of treatment options, patient elected proceed with surgery Pre-op diagnosis: 1. L4-5, L5-S1 spinal stenosis with neurogenic claudication 2. L4-5, L5-S1 spondylosis with radiculopathy Post-op diagnosis: same Procedure: 1. L4-5, L5-S1 Postero-lateral and posterior interbody fusion 2. L4-5, L5-S1 interbody cage placement. 3. L4-5, L5-S1 decompressive laminectomy with bilateral facetecomies 4. L4-5, L5-S1 Posterior segmental instrumentation 5. Fife of bone marrow from iliac crest 6. Utilization of microsurgical technique and operating microscope 7. Robotic assisted navigation surgery Same procedure as scheduled: Yes Discharge Providers Provider Date of admission: 07/03/21 07:12 Discharge Date: 07/06/21 Primary care physician: Nidia Hudson MD Consults: 07/03/21 15:20 Consult to Occupational Therapy Evaluate & Treat Comment: Physician Instructions: Evaluate and treat Consult to Physical Therapy Evaluate & Treat Comment: Physician Instructions: Evaluate and Treat 07/05/21 10:51 Consult to Home Health Routine Comment: TLIF Reason For Exam: FWW for home use at discharge Discharge provider: Anu Umana PA-C Summary Hospital Course Discharge Diagnosis: 1) s/p lumbar fusion 2) Obesity Hospital Course: Yuridia's hospital course was unremarkable. On POD#3 she was feeling well and wanted to go home with her . She was awake, alert, and oriented x 3. 0/10 pain with oxycodone and Vistaril. Ambulating w/ FWW and standby assistance. Demonstrated ability to climb stairs independently. Denies N/V, fair appetite, urinating without difficulty. Exam Vital Signs (past 8 hours): - 07/06/21 04:41 Temperature 98.6 F Pulse Rate 88 Respiratory Rate 16 Blood Pressure 113/55 L Pulse Oximetry 100 Oxygen Delivery Method Room Air Oxygen Flow Rate 0 Narrative Exam Narrative: VSS, mildly febrile to 100.6 max during hospitalization. Post op h/h 12.7/37.9 on 07/04. On day of discharge, 5/5 strength in quadriceps, hamstrings, dorsiflexors, plantarflexors bilaterally. Sensation to light touch intact throughout BLE. Calves soft, compressible, nontender and without palpable cords or masses. Objective Labs Result Diagrams: 07/04/21 04:57 PFS Medical History (Updated 07/05/21 @ 10:55 by Anu Umana PA-C) Fibromyalgia Hypothyroid Obesity (BMI 30-39.9) [facility] on CPAP Surgical History (Updated 07/05/21 @ 10:54 by Anu Umana PA-C) History of arthroscopy of left shoulder (05/31/21) History of bilateral tubal ligation History of left nephrectomy (2007) History of lumbar spinal fusion (11/15/16) S/P excision of lipoma Social History household members: spouse Smoking Status: Never smoker Discharge Assessment & Plan Assessment and Plan Assessment: 1) s/p lumbar fusion 2) Obesity Plan of Treatment: Continue oxycodone and vistaril for pain control. Follow up in office as scheduled in 2 weeks. Discharge Plan Discharge Plan Patient Disposition: Home Discharge orders & Medications Prescriptions: New docusate sodium 100 mg Capsule 100 mg PO BID PRN (Reason: narcotic-related constipation) Qty: 60 0RF hydroxyzine pamoate 25 mg Capsule 25 mg PO Q6-8H PRN (Reason: muscle spasm) Qty: 60 0RF oxycodone 5 mg tablet 5 mg PO Q4H PRN (Reason: severe pain (scale score 7-10)) Qty: 60 0RF Continued levothyroxine [Synthroid] 25 MCG tablet 50 mcg PO QDAY Qty: 0 0RF ibuprofen [Motrin IB] 200 mg Capsule 200 mg PO Q6H PRN (Reason: Pain) 0RF Follow up/Referrals: Nidia Hudson MD [Primary Care Provider] - Cesar Demarco MD [Physician] - (Follow up at [facility] as scheduled on 07/18/2021 @ 10:30 am w/ Dr Demarco) Diet/Activity/Treatments Diet: Diet as Tolerated Activity: Walk several times a day with walker. Avoid deep bending at the waist (90 degrees or more) or twisting from side to side as the waist. No lifting more than 10#. Cold/Heat Therapy: Ice to back as needed for pain relief. Skin/Wound/Dressing Care Report to your healthcare provider any signs of infection, such as:: chills, fever, night sweats, increased pain, unusual drainage and unusual redness Dressing: Leave dressing in place until follow up with Dr Demarco. Try to keep dry. Call office if it becomes very wet or bloody. May shower if covered with waterproof cover. No bathing or otherwise soaking incision. Visit Report/Discharge Packet Instructions: DI for Prescription Opioid Use, DI for Transforaminal Lumbar Interbody Fusion Stand Alone Forms: Surgery Discharge Discharge Data Primary Care Provider: Nidia Hudson Attending Provider: Cesar Demarco
--- NOTE | 2021-07-06 09:35 | OT.IP.TRT ---
Current Diagnoses Obesity, unspecified (07/03/21) Spondylolisthesis, lumbar region (07/03/21) Spinal stenosis, lumbar region without neurogenic claudication (07/03/21) Arthrodesis status (07/03/21) Surgery Performed Operation Date: 07/03/21 09:15 Actual Procedures p L4-5, L5-S1 TLIF posterior instrumentation(Not Applicable) - Cesar Demarco MD Occupational Therapy Treatment Note M2 OT-IP Current Condition Start: 07/04/21 11:30 Freq: Status: Active Protocol: Document 07/04/21 11:31 [facility] (Rec: 07/04/21 11:48 [facility] [id number]) Occupational Therapy Current Condition Current Condition Evaluation Date 07/04/21 Treatment Diagnosis S/p L4-5, L5-S1 TLIF Diagnosis Onset Date 07/03/21 Post Operative Precautions Lumbar Precautions Log Roll,No Twisting,Limit Bending,Lifting Restriction of 10 lbs,Gait Belt above Incisional Area M3 OT- IP Subjective and Pain Start: 07/04/21 11:30 Freq: Status: Active Protocol: Document 07/06/21 09:36 [facility] (Rec: 07/06/21 09:44 [facility] [id number]) OT- Subjective Occupational Therapy Visit Type Type Treatment Note Visit Start Time 08:46 Visit Stop Time 09:35 Total Visit Minutes 44 Notes Pt seen for split treatment [id number] and [id number], pt's present for caregiver training. Occupational Therapy Visit Comments Patient Comments Pt wanting to shower. Able to clarify with PA okay to shower . Patient/Caregiver Goals To go home. OT Pain Assessment Pain When Pain Assessed At Rest Pain Present Pain Present Pain Reported Location Lower Back Intensity 5 Scale Used Numeric (0 - 10) M4 OT- IP ADL's Start: 07/04/21 11:30 Freq: Status: Active Protocol: Document 07/06/21 09:36 [facility] (Rec: 07/06/21 09:44 [facility] [id number]) OT ADL-Dressing General Eval Upper Body Dressing Ability Moderate Assistance Lower Body Dressing Ability Maximum Assistance Areas Needing Assistance Pull-Over Shirt,Socks,Shoes Comments OT Dressing Comments Assist with tank top and jacket to help pull on and get around her shoulders. Pt able to practice use of track machine operator repairer to get underwear and pants over her feet and with TIFFANIE to stand able to pull up over her hips. Assist for socks and tie shoes. Pt's and daughters to assist her at home. OT ADL-Toileting Comments OT Toileting Comments Pt did not have to go. OT ADL-Bathing Bathing Type Bathing Type Shower General Evaluation Bathing Ability Moderate Assistance,Maximal Assistance Areas Needing Assistance Wash/Dry Back,Wash/Dry Perineal Area,Wash/Dry Lower Extremities Comments OT Bathing Comments Pt realizes will benefit from a shower chair and hand held shower spray. M5 OT- IP IADL's Start: 07/04/21 11:30 Freq: Status: Active Protocol: Document 07/04/21 11:31 [facility] (Rec: 07/04/21 11:48 [facility] [id number]) OT-Instrumental Activities of Daily Living Home Safety Awareness Awareness of Need for Assistance at Home Good Awareness Home Safety Comments Pt's to be home to assist pt until Saturday for all needs until having to go back to work. Medication Management Medication Management No Deficits Identified Money Management Money Management No Deficits Identified Meal Preparation Meal Preparation Comments Pt's to assist. Power Press Supervisor Power Press Supervisor Comments Pt's to assist. M6 OT- IP Functional Cognition Start: 07/04/21 11:30 Freq: Status: Active Protocol: Document 07/06/21 09:36 [facility] (Rec: 07/06/21 09:44 [facility] [id number]) Cognitive Factors Limiting Selfcare Function Cognitive Ability Safety Awareness Decreased Ability to Apply Precautions Cognitive Comments Cognitive Assessment Comments Reminders not to twist during mobility and ADl needs. M7 OT- IP Mobility and Balance Start: 07/04/21 11:30 Freq: Status: Active Protocol: Document 07/06/21 09:36 [facility] (Rec: 07/06/21 09:44 [facility] [id number]) OT-Transfer Assessment Sit to and From Stand Sit to and from Stand Minimal Assistance,Moderate Assistance Transfers Transfer Ability Contact Guard Assistance Technique Transfer Destination Chair,Shower Stall Transfer Technique Stand Step Pivot Devices Transfer Assistive Devices Gait Belt,Front Wheeled Walker Comments Mobility Comments Pt's able to safely assist pt for transfer and mobility needs. Pt's not wanting to actively participate in pt's shower and wanting just to listen to the therapist in how to assist the pt at this time. OT- Balance Assessment Sitting Balance and Reactions Static Sitting Balance Ability Good Dynamic Sitting Balance Ability Good Standing Balance and Reactions Static Standing Balance Ability Fair M8 OT- IP Objective Assessments Start: 07/04/21 11:30 Freq: Status: Active Protocol: Document 07/04/21 11:31 [facility] (Rec: 07/04/21 11:48 [facility] [id number]) OT-Muscle Tone Assessment Muscle Tone WNL Yes M9 OT- IP Assessment and Plan Start: 07/04/21 11:30 Freq: Status: Active Protocol: Document 07/06/21 09:36 [facility] (Rec: 07/06/21 09:44 [facility] [id number]) OT Summary Assessment and Plan Potential Rehabilitation Potential Good Analytic Complexity at Evaluation Low Summary Progress Towards Goals Progressing Toward Goals Assessment Summary Pt's not wanting to actively participate in pt's shower but present to hear education for safety and equipment needs. Pt to go home with family to assist her . Goals Grooming Goal Independent Dressing Goal Minimal Assistance Bathing Goal Standby Assistance Toilet Transfer Goal Independent Shower Transfer Goal Independent Patient/Caregiver Education Goal Caregiver Independent Assisting Patient Days to Meet Goals 2 Frequency of Treatment Frequency Of Treatment Once a Day Treatment Plan OT Treatment Plan ADL Training,Functional Mobility,Patient/Family Education,Discharge Planning Discharge Recommendations OT Discharge Recommendations Home with 14/01 Assist Available Home Equipment Needs FWW, shower chair, hand held shower spray Transportation Needs at Discharge Private Vehicle
--- NOTE | 2021-07-06 09:36 | PT-IP ANOTE ---
Attempted to see pt at 9:36, pt refused therapy stating she has no further needs and about d/c home.
--- NOTE | 2021-07-06 10:19 | PC.NURSE ---
Day shift: Pt left unit at approx 1015. Paperwork signed and all questions answered. MD scripts sent electronic. Pt has all personal belongings. Dressing remains CDI. Taken to car in by DEEJAY Bowers. CMS WNL and PPP.
== END 2021-07-06 10:21 | disposition home or self-care (01) ==
LOC: OR 07:12 → AC 07:12
PROVIDERS: Admitting Provider Orthopaedic Surgery Orthopaedic Surgery of the Spine; PCP Family Medicine; Referring Provider Orthopaedic Surgery Orthopaedic Surgery of the Spine; Visit Provider Orthopaedic Surgery Orthopaedic Surgery of the Spine
PROC: (CPT 63052; principal; 2021-07-03 09:15)
DX: M43.16 Spondylolisthesis, lumbar region (principal); M47.26 Other spondylosis with radiculopathy, lumbar region; M48.061 Spinal stenosis, lumbar region without neurogenic claudication; G47.33 Obstructive sleep apnea (adult) (pediatric); E03.9 Hypothyroidism, unspecified; M79.7 Fibromyalgia; Z20.822 Contact with and (suspected) exposure to COVID-19
CPT/HCPCS: 63052; 63053; 20939; 22633; 22634; 22842; 22853 ×2; 36415; 72100; 76000; 85014; 85018; 87635; 97116; 97161; 97166; 97530; 97535; C1776; C9803; G0378; C9290; J0171; J0330; J0690; J1100; J1170; J2250; J2405; J2704; J3010; J3410